=== PATIENT | male | born 1955 | race Caucasian/White ===

== ENCOUNTER 2024-02-21 12:25 | Outpatient (CLI) | payer MEDICARE, BC ==
[~2024-02-21 12:25] MED LIST: ATEN25TA PO; CLOP-32 PO; DULA0.75 SQ; EMPA25TA PO; ERGO500054; EZET10TA48 PO; FLO0.4C; FURO-150 PO; HYDR-3972 PO; LISI10TA27 PO; METF-1203 PO; PANT40TA54 PO; POTA-206 PO
== END 2024-02-21 23:59 | disposition home or self-care (01) ==
LOC: RAD 12:25
PROVIDERS: ATTEND Thoracic Surgery (Cardiothoracic Vascular Surgery)
DX: I51.7 Cardiomegaly (principal); J90 Pleural effusion, not elsewhere classified; Z95.1 Presence of aortocoronary bypass graft
CPT/HCPCS: 71046